=== PATIENT | female | born 1990 | race Caucasian/White ===

== ENCOUNTER 2024-03-15 12:43 | Inpatient (IN) | payer MEDICAID, SELFPAY ==
--- NOTE | ~2024-03-15 | CT_ITS ---
EXAMINATION: CT FACIAL BONES WITHOUT CONTRAST CLINICAL INFORMATION: Left upper facial pain post extraction #16 COMPARISON: None available. TECHNIQUE: Axial images through the facial bones without IV contrast. Sagittal and coronal reconstructions. This CT examination was performed using dose optimization techniques as appropriate, variously including the following: *Automated exposure control *Adjustment of mA and/or kV according to patient size (this includes techniques or standardized protocols for targeted exams where dose is matched to indication/reason for exam; i.e. extremities or head) *Use of iterative reconstruction technique DLP: 396 mGy-cm FINDINGS: There are remaining apical roots of the most posterior left maxillary molar. The remainder of the tooth is not seen and has presumably been extracted. There is adjacent soft tissue thickening of the lateral to the maxilla measuring 1.5 x 3 cm in dimension. This is low-attenuation and there is some stranding of the surrounding fat. Appearance is suggestive of phlegmon or small developing abscess, difficult to differentiate without IV contrast. There is a periapical cyst of the more anterior left maxillary molar. Multiple left and right mandibular molars are missing and may have been extracted. There is membranous soft tissue thickening in the floor of the left maxillary sinus, likely odontogenic in origin. The remainder of the paranasal sinuses are clear. Mastoid air cells and middle ears are clear. The orbits are normal. Visualized intracranial structures are normal. Visualized salivary glands are normal. There is shotty cervical lymphadenopathy. Prominent soft tissue in the oropharynx/pontine tonsils. Visualized cervical spine unremarkable. CT/CT facial bones wo IV con IMPRESSION: Roots of the extracted tooth remain. 1.5 x 3 cm size low-attenuation soft tissue adjacent to the left posterior lateral maxilla and extracted tooth questionable for phlegmon or developing abscess. Membranous soft tissue thickening of the floor of the left maxillary sinus likely odontogenic in origin.
[2024-03-15 12:48] VITALS: BP 144/65; PULSE 89; RESP 18; TEMP 36.6; O2SAT 98; BMI 38.1
--- NOTE | 2024-03-15 12:48 | ED_ITS ---
HPI - Dental/Oral General Chief complaint: Dental/Oral Stated complaint: Teeth pulled-in pain Time Seen by Provider: 03/15/24 12:58 Source: patient Mode of arrival: ambulatory Limitations: no limitations History of Present Illness HPI Narrative: 34-year-old female presents to the ER for left upper dental pain associated with facial swelling and inability to open her mouth since she had tooth 16 extracted by [facility] dental 7 days ago. She states she had her top 2 molars on the left side extracted last Sunday. She reports that a piece of tooth 16. Broke off and they were unable to get it out. She was initially discharged with no pain medications or antibiotics. She went back to them 2 days after the procedure with severe pain in the left upper face and jaw, swelling and inability to open her mouth. She was prescribed Motrin, Tylenol and amoxicillin. She went back again 3 days later with persistent and ongoing symptoms. Her amoxicillin was changed to clindamycin. She states she has had no improvement in her pain or swelling. She called the office today and they told her they would be able to do much else for her, they provided her a referral to an oral surgeon. Patient has been taking Motrin with brief and minor relief in her pain. She is unable to eat and drink due to pain and swelling. MD Complaint: tooth pain Location: Tooth # (15 and 16) Onset (ago): week(s) (1) Duration: worsening Severity: severe Severity scale (1-10): 10 Relieving factors: NSAIDs Exacerbating factors: chewing Context: other ( Recent extraction) Associated symptoms: ear pain Treatment prior to arrival: oral analgesic Related Data Allergies Allergy/AdvReac Type Severity Reaction Status Date / Time No Known Allergies [NKA] Allergy Mild NOT Verified 03/15/24 12:49 APPLICABLE Review of Systems 2 Review of Systems: Yes all other systems are reviewed and are negative PMFSH Social History Social History Advance Directives: No Advance Directives Information Provided: Yes Physical Exam 2 Vital Signs: Vital Signs: Last Vital Signs Temp 98 F 03/15/24 12:48 Pulse 89 03/15/24 12:48 Resp 18 03/15/24 12:48 BP 144/65 H 03/15/24 12:48 Pulse Ox 98 03/15/24 12:48 O2 Del Method Room Air 03/15/24 12:48 BMI result Body Mass Index 38.1 Appearance: Alert. Oriented X3. No acute distress. Head/face: normocephalic, atraumatic. moderate left-sided facial swelling Eyes: Pupils equal, round and reactive to light. ENT: Pharynx with moist mucous membranes. unable to open the jaw for full dental examination, left upper jaw with significant tenderness and gingival edema in the area of the 2nd and 3rd molars. Neck: Normal inspection. Neck supple. no anterior neck swelling CVS: Normal heart rate and rhythm. Pulses normal. Respiratory: No respiratory distress. Breath sounds normal. Skin: Skin warm and dry. Normal skin color. Normal skin turgor. No rashes. Extremities: No lower extremity edema. No joint swelling. Neuro/psych: Oriented X 3. No motor deficit. No sensory deficit. CN II-XII intact. Normal speech and cognition. Course Course Course Narrative: This is an RME performed by Maribell Malone, [employer]CH[employer]ICIAN: Additional HPI, ROS, PE not included below will be deferred to primary provider. Patient is a 34-year-old female who presents emergency department for evaluation of dental pain. She had wisdom teeth extracted; upper left and right he has been experiencing pain side despite the use of acetaminophen and ibuprofen as instructed. She has been to her dentist twice over the past week in regards to her pain, and she reports that her antibiotics were switched.. She feels as though she is unable to open her jaw at all due to the amount of pain and swelling. Physical exam: Notable swelling to the left cheek, difficulty visualizing the extracted socket while in triage due to limited opening of the jaw, do not see active purulent drainage or notable erythema to the gingiva Reevaluation(s) Reevaluation #1: Patient is still in severe pain. Still unable to open her mouth well. CT scan showing possible phlegmon versus developing abscess. Will plan to admit the patient for IV antibiotics, pain control. Time: 15:22 Medications Administered Discontinued Medications Generic Name Dose Route Start Last Admin Trade Name Freq PRN Reason Stop Dose Admin Sodium Chloride 1,000 mls @ 999 mls/hr 03/15/24 13:30 03/15/24 13:45 Ns IVCONT 03/15/24 14:30 999 mls/hr .Q1H1M INDIRA Administration Ampicillin Sodium/Sulbactam 100 mls @ 200 mls/hr 03/15/24 15:17 03/15/24 15:34 Sodium 3 gm/ Sodium Chloride IV 03/15/24 15:46 200 mls/hr ONCE ONE Administration Ketorolac Tromethamine 15 mg 03/15/24 13:18 03/15/24 13:44 Ketorolac Tromethamine 15 Mg/Ml Vial IVPUSH 03/15/24 13:19 15 mg ONCE ONE Administration Morphine Sulfate 4 mg 03/15/24 13:18 03/15/24 13:44 Morphine Sulfate 4 Mg/Ml Cartridge IVPUSH 03/15/24 13:19 4 mg ONCE ONE Administration Protocol Morphine Sulfate 4 mg 03/15/24 15:21 03/15/24 15:36 Morphine Sulfate 4 Mg/Ml Cartridge IVPUSH 03/15/24 15:22 4 mg ONCE ONE Administration Protocol Ondansetron HCl 4 mg 03/15/24 13:18 03/15/24 13:44 Ondansetron Hcl 4 Mg/2 Ml Vial IVPUSH 03/15/24 13:19 4 mg ONCE ONE Administration Medical Decision Making Medical Decision Making [facility] Narrative: 34-year-old female presents to the ER for evaluation of worsening left-sided facial pain and swelling after she had teeth 15 and 16 extracted 1 week ago by [facility] dentist. Symptoms are getting worse despite amoxicillin and clindamycin. Concerned she will require IV antibiotics and pain control. CT scan has been ordered along with lab workup. CT scan showing a early abscess versus phlegmon with 1.5 x 3 cm area near the extracted tooth, roots remain patient was given IV morphine and Toradol with ongoing pain. BP remained stable. Additional IV morphine has been ordered along with IV Unasyn. Will plan for admission to the hospital for further management. Differential Diagnosis Differential Diagnoses: The differential diagnosis associated with the presentation includes Dental abscess, phlegmon, local inflammatory reaction, sinus infection Admission/Observation Consideration of admission/observation: Escalation of care including admission/observation considered Consult Healthcare Provider Management of the patient was discussed with: Hospitalist Lab Data [facility] Lab Attestation statement: I reviewed the patient's lab results. 03/15/24 13:46 03/15/24 13:46 Labs: Lab Results 03/15/24 Range/Units 13:46 WBC 11.0 H (4.8-10.8) X10*3/uL RBC 3.95 L (4.20-5.50) X10*6/uL Hgb 10.1 L (12.0-16.0) g/dl Hct 30.7 L (37.0-47.0) % MCV 77.7 L (80.0-98.0) fL MCH 25.6 L (27.0-33.0) pg MCHC 32.9 (31.0-35.0) g/dl RDW 14.5 (11.0-16.0) % Plt Count 350 (160-400) X10*3/uL MPV 8.9 L (9.4-12.3) fL Immature Gran % (Auto) 0.5 H (0.0-0.4) % Neut % (Auto) 77.7 H (45-73) % Lymph % (Auto) 11.9 L (20-40) % [place] % (Auto) 7.6 (2-11) % Eos % (Auto) 1.9 (0-4) % Baso % (Auto) 0.4 (0-2) % Lymph # (Auto) 1.3 (1.2-4.9) X10*3/uL [place] # (Auto) 0.8 (0.1-1.2) X10*3/uL Eos # (Auto) 0.2 (0.0-0.4) X10*3/uL Baso # (Auto) 0.0 (0.0-0.2) X10*3/uL Abs Immat Gran (auto) 0.06 H (0.00-0.03) X10*3/uL Absolute Neuts (auto) 8.5 H (2.0-8.3) x10*3/uL Absolute Nucleated RBC 0.000 (0.0-0.012) X10*3/uL Nucleated RBC % (auto) 0.0 (0.0-0.2) /100WBC Sodium 139 (135-145) mmol/L Potassium 3.5 (3.3-5.1) mmol/L Chloride 106 (96-108) mmol/L Carbon Dioxide 20 L (22-29) mmol/L Anion Gap 17 (12-20) BUN 8 L (9-16) mg/dL Creatinine 0.89 (0.5-1.4) mg/dL Estim Creat Clear Calc 98.1 Estimated GFR > 60 Random Glucose 141 H (60-115) mg/dL Calcium 9.4 (8.4-10.2) mg/dL Independent Interpretation I performed an independent interpretation of an: CT Scan Interpretation: abnormality in the upper left molar area, agree w/ radiology read Radiology Impression Discussion of test interpretation with radiology: I have reviewed the radiologist's reading. Radiologist Impression: EXAMINATION: CT FACIAL BONES WITHOUT CONTRAST CLINICAL INFORMATION: Left upper facial pain post extraction #16 COMPARISON: None available. TECHNIQUE: Axial images through the facial bones without IV contrast. Sagittal and coronal reconstructions. This CT examination was performed using dose optimization techniques as appropriate, variously including the following: *Automated exposure control *Adjustment of mA and/or kV according to patient size (this includes techniques or standardized protocols for targeted exams where dose is matched to indication/reason for exam; i.e. extremities or head) *Use of iterative reconstruction technique DLP: 396 mGy-cm FINDINGS: There are remaining apical roots of the most posterior left maxillary molar. The remainder of the tooth is not seen and has presumably been extracted. There is adjacent soft tissue thickening of the lateral to the maxilla measuring 1.5 x 3 cm in dimension. This is low-attenuation and there is some stranding of the surrounding fat. Appearance is suggestive of phlegmon or small developing abscess, difficult to differentiate without IV contrast. There is a periapical cyst of the more anterior left maxillary molar. Multiple left and right mandibular molars are missing and may have been extracted. There is membranous soft tissue thickening in the floor of the left maxillary sinus, likely odontogenic in origin. The remainder of the paranasal sinuses are clear. Mastoid air cells and middle ears are clear. The orbits are normal. Visualized intracranial structures are normal. Visualized salivary glands are normal. There is shotty cervical lymphadenopathy. Prominent soft tissue in the oropharynx/pontine tonsils. Visualized cervical spine unremarkable. CT/CT facial bones wo IV con IMPRESSION: Roots of the extracted tooth remain. 1.5 x 3 cm size low-attenuation soft tissue adjacent to the left posterior lateral maxilla and extracted tooth questionable for phlegmon or developing abscess. Membranous soft tissue thickening of the floor of the left maxillary sinus likely odontogenic in origin. External Record Review External record reviewed: Office record, Outpatient record, Prior outpatient labs and Prior outpatient radiology Prescription Management I considered prescription management with: Pain Medication and Antibiotic Critical Care Time Critical Care Time Critical Care Time: Yes Total Critical Care Time: 44 Attestation: I have personally provided critical care time exclusive of time spent on separately billable procedures. Time includes review of lab data, radiology results, discussion with consultants, and monitoring for potential decompensation. Intervention performed as documented. Discharge Plan Discharge Clinical Impression: Dental abscess Patient Disposition: Admitted As Inpatient
--- NOTE | 2024-03-15 13:19 | PC.NURSE ---
PT REPORTS THAT SHE HAD HER L UPPER WISDOM TOOTH PULLED LAST SUNDAY AND WAS SENT HOME ON ABX. SHE COMES IN TODAY WITH R JAW SWELLING AND 10/21 TOOTHACHE. PT SAID SHE TOOK TYLENOL AND IBUPROFEN BUT NO RELIEF.
[2024-03-15] MEDS: Morphine Sulfate 4 MG/ML CARTRIDGE IVPUSH ×2 (13:44→15:36)
[2024-03-15] MEDS: Ketorolac Tromethamine 15 MG/ML VIAL IVPUSH (13:44)
[2024-03-15] MEDS: ondansetron HCL 4 MG/2 ML VIAL IVPUSH (13:44)
[2024-03-15] MEDS: 0.9 % Sodium Chloride 1,000 ML 999 ML IVCONT (13:45)
--- NOTE | 2024-03-15 13:50 | PC.NURSE ---
20G IV INSERTED LAC, TOLERATED WELL.
[2024-03-15 13:52] LABS: Basophils Percent Auto 0.4 % (0-2); Eosinophils Absolute Auto 0.2 X10*3/uL (0.0-0.4); Eosinophils Percent Auto 1.9 % (0-4); Hematocrit 30.7 % (37.0-47.0); Hemoglobin 10.1 g/dl (12.0-16.0); Imm Gran Abs Auto 0.06 X10*3/uL (0.00-0.03); Imm Gran Pct Auto 0.5 % (0.0-0.4); Lymphocytes Absolute Auto 1.3 X10*3/uL (1.2-4.9); Lymphocytes Percent Auto 11.9 % (20-40); Mean Corpuscular HGB Conc 32.9 g/dl (31.0-35.0); Mean Corpuscular Hemoglobin 25.6 pg (27.0-33.0); Mean Corpuscular Volume 77.7 fL (80.0-98.0); Mean Platelet Volume 8.9 fL (9.4-12.3); Monocytes Absolute Auto 0.8 X10*3/uL (0.1-1.2); Monocytes Percent Auto 7.6 % (2-11); Neutrophils Absolute Auto 8.5 x10*3/uL (2.0-8.3); Neutrophils Percent Auto 77.7 % (45-73); Platelet Count 350 X10*3/uL (160-400); Red Blood Count 3.95 X10*6/uL (4.20-5.50); Red Cell Distribution Width 14.5 % (11.0-16.0)
--- NOTE | 2024-03-15 13:59 | PC.NURSE ---
PT TAKEN TO CT AT THIS TIME.
[2024-03-15 14:14] LABS: Anion Gap 17 (12-20); Blood Urea Nitrogen 8 mg/dL (9-16); Calcium 9.4 mg/dL (8.4-10.2); Carbon Dioxide 20 mmol/L (22-29); Chloride 106 mmol/L (96-108); Creatinine Clr Calc Pharmacy 98.1; Estimated Glomerular Filt Rate > 60; Glucose Random 141 mg/dL (60-115); Potassium 3.5 mmol/L (3.3-5.1); Sodium 139 mmol/L (135-145)
[2024-03-15] MEDS: Ampicillin Sodium/Sulbactam Na 3 GM in 0.9 % Sodium Chloride 100 ML IV (15:34)
--- NOTE | 2024-03-15 16:15 | PM.IMHP ---
History of Present Illness Date of Service: 03/15/24 Chief Complaint: Dental pain 34-year-old female presents to the ER for left upper dental pain associated with facial swelling and inability to open her mouth since she had tooth 16 extracted by [facility] 7 days ago. She states she had her top 2 molars on the left side extracted last Sunday. She reports that a piece of tooth 16. Broke off and they were unable to get it out. She was initially discharged with no pain medications or antibiotics. She went back to them 2 days after the procedure with severe pain in the left upper face and jaw, swelling and inability to open her mouth. She was prescribed Motrin, Tylenol and amoxicillin. She went back again 3 days later with persistent and ongoing symptoms. Her amoxicillin was changed to clindamycin. She states she has had no improvement in her pain or swelling. She called the office today and they told her they would be able to do much else for her, they provided her a referral to an oral surgeon. Patient has been taking Motrin with brief and minor relief in her pain. She is unable to eat and drink due to pain and swelling. In the emergency room, CT scan demonstrated roots of extracted tooth remain 1.5 x 3 cm low attenuation soft tissue adjacent to the left posterior lateral maxilla and extracted tooth questionable developing abscess; given multiple doses of morphine along with Toradol with minimal improvement. At this point in time she will be admitted for IV antibiotics and pain control Review of Systems Review of Systems: Denies chest pain Denies shortness of breath Denies nausea vomiting diarrhea Denies fever chills Denies shortness of breath PMFSH Social History Advance Directives: No Advance Directives Information Provided: Yes Meds Allergies Allergy/AdvReac Type Severity Reaction Status Date / Time No Known Allergies [NKA] Allergy Mild NOT Verified 03/15/24 12:49 APPLICABLE Active Medications: Current Medications Acetaminophen (Acetaminophen 325 Mg Tablet) 650 mg PO Q6H PRN PRN Reason: Pain, Mild (Pain Scale 1-3) Enoxaparin Sodium (Enoxaparin Sodium 40 Mg/0.4 Ml Syringe) 40 mg SUBCUT Q24H INDIRA Clindamycin Phosphate (Cleocin) 600 mg in 50 mls @ 100 mls/hr IV Q6H INDIRA Morphine Sulfate (Morphine Sulfate 4 Mg/Ml Cartridge) 4 mg IVPUSH Q4H PRN; Protocol PRN Reason: Pain, Severe (Pain Scale 7-10) Ondansetron HCl (Ondansetron Hcl 4 Mg/2 Ml Vial) 4 mg IVPUSH Q8H PRN PRN Reason: Nausea and Vomiting Oxycodone HCl (Oxycodone Hcl Immed Release 5 Mg Tablet) 10 mg PO Q4H PRN PRN Reason: Pain, Moderate(Pain Scale 4-6) Sodium Chloride (0.9 % Sodium Chloride Flush 3 Ml Syringe) 3 ml IVFLUSH QSHIFT [facility] Physical Exam Vital Signs and Narrative: Vital Signs: Last Vital Signs Temp 98 F 03/15/24 12:48 Pulse 89 03/15/24 12:48 Resp 18 03/15/24 12:48 BP 144/65 H 03/15/24 12:48 Pulse Ox 98 03/15/24 12:48 O2 Del Method Room Air 03/15/24 12:48 BMI result Body Mass Index 38.1 Const: Other: Awake alert uncomfortable appearing lying on stretcher HEENT: Other: Left facial edema; erythematous gum adjacent to extraction site without visible drainage. Resp: Other: Clear to auscultation bilaterally no rales rhonchi or wheezes Cardio: Other: No S4; positive S1-S2; no S3 murmurs rubs or gallops GI: Other: Soft nontender nondistended normoactive bowel sounds Extrem: Other: No edema bilaterally Results Labs 03/15/24 13:46 03/15/24 13:46 Labs: Laboratory Results - last 24 hr 03/15/24 13:46 MCV 77.7 L MCH 25.6 L MCHC 32.9 RDW 14.5 Plt Count 350 MPV 8.9 L Immature Gran % (Auto) 0.5 H Neut % (Auto) 77.7 H Lymph % (Auto) 11.9 L [place] % (Auto) 7.6 Eos % (Auto) 1.9 Baso % (Auto) 0.4 Lymph # (Auto) 1.3 [place] # (Auto) 0.8 Eos # (Auto) 0.2 Baso # (Auto) 0.0 Abs Immat Gran (auto) 0.06 H Absolute Neuts (auto) 8.5 H Absolute Nucleated RBC 0.000 Nucleated RBC % (auto) 0.0 Anion Gap 17 Estim Creat Clear Calc 98.1 Estimated GFR > 60 Random Glucose 141 H Calcium 9.4 Imaging Radiologist's Impressions: Impressions Face CT 03/15/24 14:10 IMPRESSION: Roots of the extracted tooth remain. 1.5 x 3 cm size low-attenuation soft tissue adjacent to the left posterior lateral maxilla and extracted tooth questionable for phlegmon or developing abscess. Membranous soft tissue thickening of the floor of the left maxillary sinus likely odontogenic in origin. Assessment and Plan (1) Dental abscess: Status: Acute Plan 34-year-old female with essentially no past medical history admitted with facial swelling pain and inability open mouth status post tooth extraction 1 week ago. Tooth 16. Extracted however dentist told her piece of the tooth/root remained. CT scan confirms route versus early abscess. Was on amoxicillin with no improvement 1. Dental abscess (verified by CT face) -clindamycin 600 mg IV q.6 hours -Zofran IV for nausea -morphine/oxycodone for pain -full liquid diet Full code Lovenox Patient requires at least 2 midnights of inpatient stay going forward to treat dental abscess with IV antibiotics at as failed outpatient therapies. This can not be achieved a lesser acute setting Quality Stroke Does the patient have a stroke diagnosis?: No VTE Prior VTE?: No VTE Risk Level:: Medical - moderate - high VTE Device Contraindication: Treatment Not Indicated VTE Drug Contraindication: N/A - Med Ordered
[2024-03-15] MEDS: Enoxaparin Sodium 40 MG/0.4 ML SYRINGE SUBCUT (16:50)
[2024-03-15] MEDS: Clindamycin Phosphate/D5W 600 MG/50 ML PIGGYBACK 100 MG IV ×2 (16:50→23:00)
--- NOTE | 2024-03-15 18:13 | PHA.MEDREC ---
Pharmacy Consult ? Medication Reconciliation Pharmacy has completed the medication reconciliation. Spoke to pt to confirm meds.
[2024-03-15 18:35] VITALS: BP 138/69; PULSE 75; RESP 18; TEMP 36.1; O2SAT 99
[2024-03-15 19:31] VITALS: BP 135/61; PULSE 69; RESP 18; TEMP 36.3; O2SAT 100
[2024-03-15] MEDS: oxyCODONE HCl Immed Release 5 MG TABLET 10 MG PO (19:56)
[2024-03-15] MEDS: 0.9 % Sodium Chloride Flush 3 ML SYRINGE IVFLUSH (23:49)
[2024-03-16] VITALS: BP 102/53; PULSE 73; RESP 16; TEMP 36.8; O2SAT 97
[2024-03-16] MEDS: Clindamycin Phosphate/D5W 600 MG/50 ML PIGGYBACK 100 MG IV ×4 (05:22→22:39)
[2024-03-16] MEDS: oxyCODONE HCl Immed Release 5 MG TABLET 10 MG PO ×2 (05:28→11:20)
[2024-03-16 06:39] LABS: MANUAL DIFF FLAG NO
[2024-03-16 06:41] LABS: Basophils Percent Auto 0.5 % (0-2); Eosinophils Absolute Auto 0.2 X10*3/uL (0.0-0.4); Eosinophils Percent Auto 3.7 % (0-4); Hematocrit 29.3 % (37.0-47.0); Hemoglobin 9.4 g/dl (12.0-16.0); Imm Gran Abs Auto 0.04 X10*3/uL (0.00-0.03); Imm Gran Pct Auto 0.6 % (0.0-0.4); Lymphocytes Percent Auto 29.9 % (20-40); Mean Corpuscular HGB Conc 32.1 g/dl (31.0-35.0); Mean Corpuscular Hemoglobin 25.7 pg (27.0-33.0); Mean Corpuscular Volume 80.1 fL (80.0-98.0); Mean Platelet Volume 9.6 fL (9.4-12.3); Monocytes Absolute Auto 0.6 X10*3/uL (0.1-1.2); Monocytes Percent Auto 8.9 % (2-11); Neutrophils Absolute Auto 3.7 x10*3/uL (2.0-8.3); Neutrophils Percent Auto 56.4 % (45-73); Platelet Count 304 X10*3/uL (160-400); Red Blood Count 3.66 X10*6/uL (4.20-5.50); Red Cell Distribution Width 14.6 % (11.0-16.0); White Blood Count 6.5 X10*3/uL (4.8-10.8)
[2024-03-16 06:59] LABS: Alanine Aminotransferase 18 U/L (0-31); Albumin Level 3.4 g/dL (3.5-5.0); Alkaline Phosphatase 78 U/L (39-117); Anion Gap 14 (12-20); Aspartate Amino Transferase 16 U/L (5-31); Bilirubin Total 0.2 mg/dL (0.0-1.0); Blood Urea Nitrogen 8 mg/dL (9-16); Carbon Dioxide 22 mmol/L (22-29); Chloride 107 mmol/L (96-108); Creatinine Clr Calc Pharmacy 124.7; Estimated Glomerular Filt Rate > 60; Glucose Fasting 99 mg/dL (60-99); Potassium 3.6 mmol/L (3.3-5.1); Sodium 139 mmol/L (135-145); Total Protein 6.9 g/dL (6.5-8.0)
[2024-03-16 07:35] VITALS: BP 111/63; PULSE 61; RESP 16; TEMP 36.6; O2SAT 96
--- NOTE | 2024-03-16 09:44 | MHC.CM.PN ---
Patient lives at home w/ teenage children. Functionally independent. Denies use of DME or services. PCP Dori PRITCHARD at [facility] No HCP. CM provided education and offered assistance. Patient declined. DP: Goal is home self care. Family to transport. CM will continue to follow for dc needs.
[2024-03-16] MEDS: Acetaminophen 325 MG TABLET 650 MG PO ×2 (09:58→16:30)
[2024-03-16] MEDS: 0.9 % Sodium Chloride Flush 3 ML SYRINGE IVFLUSH ×3 (11:20→23:26)
--- NOTE | 2024-03-16 12:07 | P.PNIM_ITS ---
Subjective Subjective Date of Service: 03/16/24 Interval History: Notes some improvement overnight but still uncomfortable Review of Systems Denies chest pain Denies shortness of breath Denies nausea vomiting diarrhea Denies fever chills Denies shortness of breath Physical Exam 2 Vital Signs: Vital Signs: Last Vital Signs Temp 97.8 F 03/16/24 07:35 Pulse 61 03/16/24 07:35 Resp 16 03/16/24 07:35 BP 111/63 03/16/24 07:35 Pulse Ox 96 03/16/24 07:35 O2 Del Method Room Air 03/16/24 07:35 BMI result Body Mass Index 38.1 Const: Other: Awake alert uncomfortable appearing lying on stretcher HEENT: Other: Left facial edema improved; erythematous gum adjacent to extraction site without visible drainage. Resp: Other: Clear to auscultation bilaterally no rales rhonchi or wheezes Cardio: Other: No S4; positive S1-S2; no S3 murmurs rubs or gallops GI: Other: Soft nontender nondistended normoactive bowel sounds Extrem: Other: No edema bilaterally Objective Data Active Medications Acetaminophen (Acetaminophen 325 Mg Tablet) 650 mg PO Q6H PRN PRN Reason: Pain, Mild (Pain Scale 1-3) Last Admin: 03/16/24 09:58 Dose: 650 mg Documented By: MICHAEL Enoxaparin Sodium (Enoxaparin Sodium 40 Mg/0.4 Ml Syringe) 40 mg SUBCUT Q24H [facility] Last Admin: 03/15/24 16:50 Dose: 40 mg Documented By: REBECCA Clindamycin Phosphate (Cleocin) 600 mg in 50 mls @ 100 mls/hr IV Q6H [facility] Last Infusion: 03/16/24 11:56 Dose: Infused Documented By: MICHAEL Morphine Sulfate (Morphine Sulfate 4 Mg/Ml Cartridge) 4 mg IVPUSH Q4H PRN; Protocol PRN Reason: Pain, Severe (Pain Scale 7-10) Ondansetron HCl (Ondansetron Hcl 4 Mg/2 Ml Vial) 4 mg IVPUSH Q8H PRN PRN Reason: Nausea and Vomiting Oxycodone HCl (Oxycodone Hcl Immed Release 5 Mg Tablet) 10 mg PO Q4H PRN PRN Reason: Pain, Moderate(Pain Scale 4-6) Last Admin: 03/16/24 11:20 Dose: 10 mg Documented By: MICHAEL Sodium Chloride (0.9 % Sodium Chloride Flush 3 Ml Syringe) [facility] Last Admin: 03/16/24 11:20 Dose: 3 ml Documented By: MICHAEL Labs 03/16/24 06:16 03/16/24 06:16 Labs: Laboratory Results - last 24 hr 03/15/24 03/16/24 13:46 06:16 MCV 77.7 L 80.1 MCH 25.6 L 25.7 L MCHC 32.9 32.1 RDW 14.5 14.6 Plt Count 350 304 MPV 8.9 L 9.6 Immature Gran % (Auto) 0.5 H 0.6 H Neut % (Auto) 77.7 H 56.4 Lymph % (Auto) 11.9 L 29.9 [place] % (Auto) 7.6 8.9 Eos % (Auto) 1.9 3.7 Baso % (Auto) 0.4 0.5 Lymph # (Auto) 1.3 2.0 [place] # (Auto) 0.8 0.6 Eos # (Auto) 0.2 0.2 Baso # (Auto) 0.0 0.0 Abs Immat Gran (auto) 0.06 H 0.04 H Absolute Neuts (auto) 8.5 H 3.7 Absolute Nucleated RBC 0.000 0.000 Nucleated RBC % (auto) 0.0 0.0 Anion Gap 17 14 Estim Creat Clear Calc 98.1 124.7 Estimated GFR > 60 > 60 Random Glucose 141 H Fasting Glucose 99 Calcium 9.4 9.0 Total Bilirubin 0.2 AST 16 ALT 18 Alkaline Phosphatase 78 Total Protein 6.9 Albumin 3.4 L Assessment and Plan (1) Dental abscess: Status: Acute Plan 34-year-old female with essentially no past medical history admitted with facial swelling pain and inability open mouth status post tooth extraction 1 week ago. Tooth 16. Extracted however dentist told her piece of the tooth/root remained. CT scan confirms route versus early abscess. Was on amoxicillin with no improvement 1. Dental abscess (verified by CT face) -clindamycin 600 mg IV q.6 hours(2) -Zofran IV for nausea -morphine/oxycodone for pain -advance diet to regular Full code Lovenox Patient requires ongoing hospitalization for IV antibiotics to treat dental abscess that has failed outpatient therapies Quality Stroke Does the patient have a stroke diagnosis?: No VTE Prior VTE?: No VTE Risk Level:: Medical - moderate - high VTE Device Contraindication: Treatment Not Indicated VTE Drug Contraindication: N/A - Med Ordered
[2024-03-16 15:24] VITALS: BP 103/66; PULSE 70; RESP 16; TEMP 36.5; O2SAT 99
[2024-03-16] MEDS: Enoxaparin Sodium 40 MG/0.4 ML SYRINGE SUBCUT (16:21)
[2024-03-16 23:27] VITALS: BP 108/56; PULSE 64; RESP 16; TEMP 36.1; O2SAT 97
[2024-03-17] MEDS: Clindamycin Phosphate/D5W 600 MG/50 ML PIGGYBACK 100 MG IV ×2 (05:18→10:12)
[2024-03-17] MEDS: Calcium Carbonate 750 MG TAB.CHEW PO (05:33)
[2024-03-17 07:36] VITALS: BP 114/57; PULSE 59; RESP 18; TEMP 36.1; O2SAT 98
[2024-03-17] MEDS: 0.9 % Sodium Chloride Flush 3 ML SYRINGE IVFLUSH (10:12)
[2024-03-17] MEDS: Magnesium Hydrox/Alum Hydrox 30 ML ORAL.SUSP PO (10:12)
--- NOTE | 2024-03-17 10:29 | MHC.CM.PN ---
pt dcd home self care
--- NOTE | 2024-03-17 11:38 | P.DS_ITS ---
DS: Providers Provider Date of Service: 03/17/24 Date of admission: 03/15/24 16:00 Date of discharge: 03/17/24 Primary care physician: Unknown Physician DS: Diagnosis Discharge Diagnosis (1) Dental abscess: Status: Acute DS: Summary Hospital Course Hospital Course: 34-year-old female presents to the ER for left upper dental pain associated with facial swelling and inability to open her mouth since she had tooth 16 extracted by [facility] 7 days ago. She states she had her top 2 molars on the left side extracted last Sunday. She reports that a piece of tooth 16. Broke off and they were unable to get it out. She was initially discharged with no pain medications or antibiotics. She went back to them 2 days after the procedure with severe pain in the left upper face and jaw, swelling and inability to open her mouth. She was prescribed Motrin, Tylenol and amoxicillin. She went back again 3 days later with persistent and ongoing symptoms. Her amoxicillin was changed to clindamycin. She states she has had no improvement in her pain or swelling. She called the office today and they told her they would be able to do much else for her, they provided her a referral to an oral surgeon. Patient has been taking Motrin with brief and minor relief in her pain. She is unable to eat and drink due to pain and swelling. In the emergency room, CT scan demonstrated roots of extracted tooth remain 1.5 x 3 cm low attenuation soft tissue adjacent to the left posterior lateral maxilla and extracted tooth questionable developing abscess; given multiple doses of morphine along with Toradol with minimal improvement. At this point in time she will be admitted for IV antibiotics and pain control [facility] Admitted to general medical floor and started on IV clindamycin; over the next 48 hours she improved dramatically with limited pain and decreased facial swelling. At this point in time she is medically acceptable for discharge Time Attestation Discharge Coordination Time (in mins): 35 Quality: Safe Use of Opioids Does Pt have an Active Cancer Diagnosis on the Problem List?: No Quality: Stroke Does the patient have a stroke diagnosis?: No Physical Exam Vital Signs: Vital Signs: Last Vital Signs Temp 96.9 F 03/17/24 07:36 Pulse 59 03/17/24 07:36 Resp 18 03/17/24 07:36 BP 114/57 L 03/17/24 07:36 Pulse Ox 98 03/17/24 07:36 O2 Del Method Room Air 03/17/24 07:36 BMI result Body Mass Index 38.1 Const: Other: Awake alert uncomfortable appearing lying on stretcher HEENT: Other: Left facial edema improved; erythematous gum adjacent to extraction site without visible drainage. Resp: Other: Clear to auscultation bilaterally no rales rhonchi or wheezes Cardio: Other: No S4; positive S1-S2; no S3 murmurs rubs or gallops GI: Other: Soft nontender nondistended normoactive bowel sounds Extrem: Other: No edema bilaterally Discharge Plan Discharge Anticipated Discharge Date/Time: 03/17/24 11:33 Patient Disposition: Home, Self-Care Discharge Diagnosis: Dental abscess Referrals: Physician,Unknown J [Primary Care Provider] - 1 Week Discharge Medications: New oxycodone 5 mg Tablet 10 mg PO Q4H PRN (Reason: Pain, Moderate(Pain Scale 4-6)) Qty: 20 0RF Rx Instructions: Partial Fill upon patient request. clindamycin HCl 300 mg capsule 300 mg PO Q6H 7 Days Qty: 28 0RF Continued norethindrone-e.estradiol-iron [12/01 (28)] 1 mg-20 mcg (21)/75 mg (7) tablet 1 tab PO DAILY fluoxetine 10 mg capsule 10 mg PO DAILY Rx Instructions: with 20 mg ibuprofen 600 mg tablet 600 mg PO Q6H PRN (Reason: Pain) fluoxetine 20 mg capsule 20 mg PO DAILY Rx Instructions: with 10 mg Discontinued clindamycin HCl 300 mg capsule 300 mg PO Q6H Rx Instructions: END DATE: 03/20/24 Discharge Orders: Discharge Order (Routine); Ordered 03/17/24 Ordered By: Bashir Mistry Diet: Advance to usual diet Activity on Discharge: As tolerated Stand Alone Forms: Patient Portal Discharge page Print Language: Romanian Care Plan Goals: Resume all meds as taken before hospitalization Health Concerns: Clindamycin 300 mg every 6 hours for 7 days Plan of Treatment: Follow-up with your dentist and PCP next available Assessment: See discharge summary
== END 2024-03-17 12:30 | disposition home or self-care (01) | DRG 114 ==
LOC: HO.ED 13:51 → HO.EDOVER 16:10 → HO.S3 18:58
PROVIDERS: Physician Assistant; Admitting Provider Hospitalist; Emergency Provider Emergency Medicine; PCP Physician Assistant; Visit Provider Hospitalist
DX: K04.7 Periapical abscess without sinus (principal); Z79.899 Other long term (current) drug therapy
CPT/HCPCS: 36415; 70486; 80048; 80053; 85025; 99285; J0295; J0736; J1650; J1885; J2270; J2405

== ENCOUNTER → 2024-03-15 16:00 | Outpatient (BNV) | payer MEDICAID, SELFPAY | PROVIDERS: Admitting Provider Hospitalist; Emergency Provider Emergency Medicine; Visit Provider Hospitalist | DX: K04.7 Periapical abscess without sinus (principal) | CPT/HCPCS: 99223; 99232; 99239 ==

== ENCOUNTER 2024-04-12 13:31 | Emergency (ER) | payer MEDICAID, SELFPAY ==
[2024-04-12 13:36] VITALS: BP 138/100; PULSE 86; RESP 18; TEMP 36.6; O2SAT 98; BMI 39.0
--- NOTE | 2024-04-12 13:40 | ED.GENADULT ---
HPI - General Adult General Chief complaint: General Medical Stated complaint: hook in RT hand Time Seen by Provider: 04/12/24 15:32 History of Present Illness HPI narrative: Patient complains of fish hook embedded in the right hand between the thumb and the index finger Denies any numbness weakness or tingling, no other injury Related Data Home Medications ?Medication ?Instructions ?Recorded ?Confirmed fluoxetine 10 mg capsule 10 mg PO DAILY 03/15/24 03/15/24 fluoxetine 20 mg capsule 20 mg PO DAILY 03/15/24 03/15/24 ibuprofen 600 mg tablet 600 mg PO Q6H PRN Pain 03/15/24 03/15/24 norethindrone 1 mg-ethinyl 1 tab PO DAILY 03/15/24 03/15/24 estradiol 20 mcg (21)-iron 75 mg (7) tablet (12/01 (28)) Previous Rx's ?Medication ?Instructions ?Recorded clindamycin HCl 300 mg capsule 300 mg PO Q6H 7 days #28 caps 03/17/24 oxycodone 5 mg tablet 10 mg (2 x 5 mg) PO Q4H PRN Pain, 03/17/24 Moderate(Pain Scale 4-6) #20 tabs cephalexin 500 mg tablet 500 mg PO TID 2 days #6 tabs 04/12/24 Allergies Allergy/AdvReac Type Severity Reaction Status Date / Time No Known Allergies [NKA] Allergy Mild NOT Verified 04/12/24 13:37 APPLICABLE [facility] Past Medical History Source: nursing notes reviewed Social History Social History Household Members: Children Housing: Apartment Do you presently have visiting nurse or other home services: No Patient Tobacco Use Status: Never used Tobacco Substance Use Type: Marijuana Advance Directives: No Advance Directives Information Provided: No service: No Physical Exam ED Vital Signs: Vital Signs - 24 hr 04/12/24 13:36 Temperature 98 F Pulse Rate 86 Respiratory Rate 18 Blood Pressure 138/100 H Pulse Oximetry 98 Oxygen Delivery Method Room Air BMI result Body Mass Index 39.0 General appearance no acute distress Head is normocephalic neck is supple no respiratory no distress extremities the right hand has a fishhook embedded in the space webspace between the thumb and index finger neurologically intact distal with good sensation and normal movement, no tendon deficits Course Course Course Narrative: This is an RME: Additional HPI, ROS, PE not included below will be deferred to primary provider. RME assessment and note performed by: Anna Adame PA-C This is a 11-iv[age]-female who presents to the ER with complaints of fish hook in right hand since today. Plan: fish hook removal The area was cleansed with Betadine, anesthesia 6 cc of 1% lidocaine Small incision was made to remove embedded hook Hook was then easily removed with forceps and the wound was irrigated It did not need suturing and was left as is and a dressing was applied Patient was given prophylactic antibiotic and a tetanus shot Medications Administered Discontinued Medications Generic Name Dose Route Start Last Admin Trade Name Freq PRN Reason Stop Dose Admin Diphtheria/Tetanus/Acell Pertussis 0.5 ml 04/12/24 16:09 04/12/24 16:26 Diphth,Pertus(Acell),Tet Adult 0.5 Ml Syringe IM 04/12/24 16:10 0.5 ml .ONCE ONE Administration Lidocaine HCl 5 ml 04/12/24 16:09 04/12/24 16:26 Lidocaine Hcl 1 % Mpf 5 Ml Vial SUBCUT 04/12/24 16:10 5 ml ONCE ONE Administration Discharge Plan Discharge Clinical Impression: Foreign body (FB) in soft tissue Patient Disposition: Home, Self-Care Additional Instructions: [place] was removed, I made a very small widening of the opening to get it out but this did not need stitches You got a tetanus shot today We are doing 2 days of preventative antibiotic Return any time for redness swelling pain discharge from wound red stripe up arm any sign of infection any worse condition or any concerns Prescriptions: New cephalexin 500 mg tablet 500 mg PO TID 2 Days Qty: 6 0RF No Action norethindrone-e.estradiol-iron [12/01 (28)] 1 mg-20 mcg (21)/75 mg (7) tablet 1 tab PO DAILY fluoxetine 10 mg capsule 10 mg PO DAILY Rx Instructions: with 20 mg ibuprofen 600 mg tablet 600 mg PO Q6H PRN (Reason: Pain) fluoxetine 20 mg capsule 20 mg PO DAILY Rx Instructions: with 10 mg oxycodone 5 mg Tablet 10 mg PO Q4H PRN (Reason: Pain, Moderate(Pain Scale 4-6)) Qty: 20 0RF Rx Instructions: Partial Fill upon patient request. clindamycin HCl 300 mg capsule 300 mg PO Q6H 7 Days Qty: 28 0RF Print Language: Taiwanese
[2024-04-12] MEDS: Lidocaine HCl 1 % MPF 5 ML VIAL SUBCUT (16:26)
[2024-04-12] MEDS: Diphth,Pertus(ACell),Tet Adult 0.5 ML SYRINGE IM (16:26)
--- NOTE | 2024-04-12 16:28 | PC.NURSE ---
pt medicated per order
[2024-04-12] MEDS: cephALEXin 500 MG CAPSULE PO (17:48)
--- NOTE | 2024-04-12 17:49 | PC.NURSE ---
pt medicated per order
[2024-04-12 18:00] VITALS: BP 132/86; PULSE 80; RESP 18; TEMP 36.7; O2SAT 98
== END 2024-04-12 18:02 | disposition home or self-care (01) ==
PROVIDERS: Emergency Provider Emergency Medicine; PCP Physician Assistant
DX: S61.441A Puncture wound with foreign body of right hand, initial encounter (principal); W26.8XXA Contact with other sharp object(s), not elsewhere classified, initial encounter; Z23 Encounter for immunization; Y93.19 Activity, other involving water and watercraft; Y92.89 Other specified places as the place of occurrence of the external cause; Y99.9 Unspecified external cause status
CPT/HCPCS: 10120; 90471; 90715; 99282; 99284

== ENCOUNTER 2024-05-10 22:33 | Emergency (ER) | payer MEDICAID, SELFPAY ==
[2024-05-10 22:38] VITALS: BP 150/90; PULSE 106; RESP 20; TEMP 36.6; O2SAT 100; BMI 35.5
--- NOTE | 2024-05-10 23:21 | ED.FEMALEGU ---
HPI - Female Genitourinary General Chief complaint: Urogenital-Female Stated complaint: Ingrown hair Time Seen by Provider: 05/10/24 23:18 Source: patient Mode of arrival: ambulatory Limitations: no limitations History of Present Illness ED Provider: Ajith COLINDRES HPI Narrative: 34-year-old female presents with concerns that she has an infected ingrown hair in her periarea ongoing for the past few days. Patient does report that she shaves regularly last time she shaped as about a week ago. She reports it started as a tense painful region, and it ? burst today with pus and blood expressed. Patient denies numbness, tingling, fevers, chills, chest pain, shortness of breath, changes in urination or bowel habits. Related Data Home Medications ?Medication ?Instructions ?Recorded ?Confirmed fluoxetine 10 mg capsule 10 mg PO DAILY 03/15/24 03/15/24 fluoxetine 20 mg capsule 20 mg PO DAILY 03/15/24 03/15/24 ibuprofen 600 mg tablet 600 mg PO Q6H PRN Pain 03/15/24 03/15/24 norethindrone 1 mg-ethinyl 1 tab PO DAILY 03/15/24 03/15/24 estradiol 20 mcg (21)-iron 75 mg (7) tablet (12/01 ()) Previous Rx's ?Medication ?Instructions ?Recorded clindamycin HCl 300 mg capsule 300 mg PO Q6H 7 days #28 caps 03/17/24 oxycodone 5 mg tablet 10 mg (2 x 5 mg) PO Q4H PRN Pain, 03/17/24 Moderate(Pain Scale 4-6) #20 tabs cephalexin 500 mg tablet 500 mg PO TID 2 days #6 tabs 04/12/24 acetaminophen 325 mg capsule 650 mg (2 x 325 mg) PO Q6H PRN 05/10/24 (Tylenol) pain #30 caps cephalexin 500 mg tablet 500 mg PO Q6H 10 days #40 tabs 05/10/24 doxycycline hyclate 100 mg capsule 100 mg PO BID 10 days #20 caps 05/10/24 Allergies Allergy/AdvReac Type Severity Reaction Status Date / Time No Known Allergies [NKA] Allergy Mild NOT Verified 05/10/24 22:41 APPLICABLE Review of Systems Review of Systems: Yes all other systems are reviewed and are negative PMFSH Past Medical History Attestation statement: The following information was validated with the patient. Source: old records reviewed and nursing notes reviewed Social History Social History Household Members: Children Housing: Apartment Do you presently have visiting nurse or other home services: No Patient Tobacco Use Status: Never used Tobacco Substance Use Type: Marijuana service: No Physical Exam Vital Signs: Vital Signs: Last Vital Signs Temp 97.9 F 05/10/24 22:38 Pulse 106 H 05/10/24 22:38 Resp 20 05/10/24 22:38 BP 150/90 H 05/10/24 22:38 Pulse Ox 100 05/10/24 22:38 O2 Del Method Room Air 05/10/24 22:38 BMI result Body Mass Index 35.5 vss Slight tachycardia secondary to pain and anxiety Appearance: Alert.? Oriented X3.? No acute distress.? Head: Normocephalic, atraumatic, no step-offs or deformities Eyes: Pupils equal, round and reactive to light.? CVS: Normal heart rate and rhythm.? Pulses normal.? Respiratory: No respiratory distress.? Breath sounds normal.? Abdomen: Soft and nontender.? Skin: Skin warm and dry.? Normal skin color.? Normal skin turgor.? Extremities: No lower extremity edema.? No calf ttp. 5/5 strength to bilateral upper and lower extremities Back: No midline tenderness, no C-spine tenderness, full range of motion, no CVA tenderness bilaterally Neuro: Oriented X 3.? No motor deficit.? No sensory deficit. CN 2-12 intact Sensitive exam ( Maria Del Carmen LAUREANO certified surgical tech/first assistant) - r inner thigh with large 5cm x3 cm area of induration just below labia majora w/ self draining no fluctuance. Course Reevaluation(s) Reevaluation #1: Educated patient on diagnosis and treatment plan, answered all question, patient verbalizes understanding. At this time patient will be discharged home, advised to return with new or worsening symptoms. Educated on worrisome signs and symptoms and when to return. At this time I feel comfortable discharge home. Time: 23:23 Medical Decision Making Medical Decision Making [facility] Narrative: [id number] 34-year-old female presents with concerned she has an ingrown hair in the vaginal region ongoing for the past few days worsening. ( Maria Del Carmen LAUREANO certified surgical tech/first assistant) - r inner thigh with large 5cm x3 cm area of induration just below labia majora w/ self draining no fluctuance. Physical History and physical exam concerning folliculitis with abscess that is self draining/ruptured vs hidradenitis suppurativa Unlikely necrotizing infection, fourniers. No signs of sepsis Area mostly indurated no indication for incision and drainage at this time. Will encourage warm water/compress soaks and antibiotics. Will have her come in for a wound recheck in 3-4 days Plan- dc w/ atbx and warm compress soaks Differential Diagnosis Differential Diagnoses: The differential diagnosis associated with the presentation includes History and physical exam concerning folliculitis with abscess that is self draining/ruptured vs hidradenitis suppurativa Unlikely necrotizing infection, fourniers. No signs of sepsis Admission/Observation Consideration of admission/observation: Escalation of care including admission/observation considered Unlikely Tests considered The following testing was considered but not selected: No fevers, or signs of systemic illness no indication for lab Prescription Management I considered prescription management with: Antibiotic Critical Care Time Critical Care Time Critical Care Time: No Discharge Plan Discharge Clinical Impression: Folliculitis, Abscess Patient Disposition: Home, Self-Care Instructions: Folliculitis (ED), Abscess (ED), Abscess Follow-up (ED) Additional Instructions: Take your medications as prescribed. If you were prescribed antibiotics today, it is important that you take your medication to their entirety, do not skip any doses, do not finish them early. Follow-up with your primary care provider this week. Return to the emergency department with new or worsening symptoms. Such as fevers, chills, chest pain, shortness of breath, nausea, vomiting, dizziness, headache, vision changes, lethargy In case of emergency call 911 Apply warm compresses to the affected area 3-4 x per day Return for wound check here or urgent care or PCP in 3-4 days. Prescriptions: New doxycycline hyclate 100 mg capsule 100 mg PO BID 10 Days Qty: 20 0RF cephalexin 500 mg tablet 500 mg PO Q6H 10 Days Qty: 40 0RF acetaminophen [Tylenol] 325 mg capsule 650 mg PO Q6H PRN (Reason: pain) Qty: 30 0RF No Action norethindrone-e.estradiol-iron [12/01 (28)] 1 mg-20 mcg (21)/75 mg (7) tablet 1 tab PO DAILY fluoxetine 10 mg capsule 10 mg PO DAILY Rx Instructions: with 20 mg ibuprofen 600 mg tablet 600 mg PO Q6H PRN (Reason: Pain) fluoxetine 20 mg capsule 20 mg PO DAILY Rx Instructions: with 10 mg oxycodone 5 mg Tablet 10 mg PO Q4H PRN (Reason: Pain, Moderate(Pain Scale 4-6)) Qty: 20 0RF Rx Instructions: Partial Fill upon patient request. clindamycin HCl 300 mg capsule 300 mg PO Q6H 7 Days Qty: 28 0RF cephalexin 500 mg tablet 500 mg PO TID 2 Days Qty: 6 0RF Referrals: Dori Hurtado PA [Primary Care Provider] - 2 days Stand Alone Forms: Work/School Release Print Language: Slovak
[2024-05-10 23:51] VITALS: BP 141/91; PULSE 100; RESP 18; TEMP 36.7; O2SAT 99
== END 2024-05-10 23:53 | disposition home or self-care (01) ==
PROVIDERS: Emergency Provider Internal Medicine; PCP Physician Assistant
DX: L73.8 Other specified follicular disorders (principal); L02.415 Cutaneous abscess of right lower limb
CPT/HCPCS: 99282; 99283

== ENCOUNTER 2024-12-29 13:56 | Emergency (ER) | payer MEDICAID, SELFPAY ==
[2024-12-29 14:15] VITALS: BP 131/85; PULSE 94; RESP 19; TEMP 36.6; O2SAT 98; BMI 42.2
--- NOTE | 2024-12-29 14:15 | ED.LOWEXIN ---
HPI - Extremity Injury (Lower) General Chief Complaint: Extremity Injury, Lower Stated Complaint: L Ankle Sprain 12/29/24 Related Data Home Medications ?Medication ?Instructions ?Recorded ?Confirmed fluoxetine 10 mg capsule 10 mg PO DAILY 03/15/24 03/15/24 fluoxetine 20 mg capsule 20 mg PO DAILY 03/15/24 03/15/24 ibuprofen 600 mg tablet 600 mg PO Q6H PRN Pain 03/15/24 03/15/24 norethindrone 1 mg-ethinyl 1 tab PO DAILY 03/15/24 03/15/24 estradiol 20 mcg (21)-iron 75 mg (7) tablet (12/01 (28)) Previous Rx's ?Medication ?Instructions ?Recorded clindamycin HCl 300 mg capsule 300 mg PO Q6H 7 days #28 caps 03/17/24 oxycodone 5 mg tablet 10 mg (2 x 5 mg) PO Q4H PRN Pain, 03/17/24 Moderate(Pain Scale 4-6) #20 tabs cephalexin 500 mg tablet 500 mg PO TID 2 days #6 tabs 04/12/24 acetaminophen 325 mg capsule 650 mg (2 x 325 mg) PO Q6H PRN 05/10/24 (Tylenol) pain #30 caps cephalexin 500 mg tablet 500 mg PO Q6H 10 days #40 tabs 05/10/24 doxycycline hyclate 100 mg capsule 100 mg PO BID 10 days #20 caps 05/10/24 Allergies Allergy/AdvReac Type Severity Reaction Status Date / Time No Known Allergies [NKA] Allergy Mild NOT Verified 12/29/24 14:16 APPLICABLE [facility] Social History Social History Household Members: Children Housing: Apartment Do you presently have visiting nurse or other home services: No Patient Tobacco Use Status: Never used Tobacco Substance Use Type: Marijuana Advance Directives: No Advance Directives Information Provided: No Do you have a plan to hurt others: No Plan service: No Physical Exam Vital Signs: Vital Signs: Last Vital Signs Temp 98 F 12/29/24 14:15 Pulse 94 12/29/24 14:15 Resp 19 12/29/24 14:15 BP 131/85 12/29/24 14:15 Pulse Ox 98 12/29/24 14:15 O2 Del Method Room Air 12/29/24 14:15 BMI result Body Mass Index 42.2 Course Course Course Narrative: This is an RME: Additional HPI, ROS, PE not included below will be deferred to primary provider. RME assessment and note performed by: Anna Adame PA-C This is a 39-ioro-hye-female who presents to the ER with a complaint of left ankle and left foot pain s/p fall. Reporting popping sensation with fall. Unsure if she twisted it. Denies head strike or LOC. Plan: xr foot/ankle Reevaluation(s) Reevaluation #1: Patient left without completing treatment. Discharge Plan Discharge Clinical Impression: Acute foot pain Patient Disposition: Left W/O Completing Treatment Prescriptions: No Action norethindrone-e.estradiol-iron [Junel FE 12/01 (28)] 1 mg-20 mcg (21)/75 mg (7) tablet 1 tab PO DAILY fluoxetine 10 mg capsule 10 mg PO DAILY Rx Instructions: with 20 mg ibuprofen 600 mg tablet 600 mg PO Q6H PRN (Reason: Pain) fluoxetine 20 mg capsule 20 mg PO DAILY Rx Instructions: with 10 mg oxycodone 5 mg Tablet 10 mg PO Q4H PRN (Reason: Pain, Moderate(Pain Scale 4-6)) Qty: 20 0RF Rx Instructions: Partial Fill upon patient request. clindamycin HCl 300 mg capsule 300 mg PO Q6H 7 Days Qty: 28 0RF cephalexin 500 mg tablet 500 mg PO TID 2 Days Qty: 6 0RF doxycycline hyclate 100 mg capsule 100 mg PO BID 10 Days Qty: 20 0RF cephalexin 500 mg tablet 500 mg PO Q6H 10 Days Qty: 40 0RF acetaminophen [Tylenol] 325 mg capsule 650 mg PO Q6H PRN (Reason: pain) Qty: 30 0RF Discharge Date/Time: 12/29/24 15:53
== END 2024-12-29 15:53 | disposition left against medical advice (07) ==
PROVIDERS: Emergency Provider Emergency Medicine
DX: M79.671 Pain in right foot (principal); Z79.899 Other long term (current) drug therapy
CPT/HCPCS: 99281; 99283

== ENCOUNTER 2025-04-13 15:05 | Outpatient (RCR) | payer MEDICAID, SELFPAY | END 2025-04-30 14:54 | disposition home or self-care (01) | LOC: HO.PT 15:05 | PROVIDERS: Visit Provider Physical Therapist | DX: Z47.89 Encounter for other orthopedic aftercare (principal); Z87.81 Personal history of (healed) traumatic fracture; Z98.890 Other specified postprocedural states | CPT/HCPCS: 97110; 97140; 97161; 97530 ==

== ENCOUNTER 2025-11-04 10:33 | Emergency (ER) | payer MEDICAID, SELFPAY ==
--- NOTE | ~2025-11-04 | US_ITS ---
EXAMINATION: US TRIPLEX LOWER EXTREMITY, LEFT CLINICAL INFORMATION: Leg pain, DVT in January COMPARISON: None available. TECHNIQUE: Color-flow triplex imaging with spectral analysis and compression Doppler were performed on the left lower extremity. FINDINGS: Respiratory variation, normal compression and augmented flow are noted throughout the left lower extremity. The visualized common femoral vein, superficial femoral vein, profunda femoral vein, popliteal vein and midcalf peroneal and posterior tibial venous segments show no evidence of deep venous thrombosis. There is no Stevens's cyst. US/US venous duplex LE LT IMPRESSION: No evidence of deep venous thrombosis involving the left lower extremity. Electronically signed by: Baron Baer MD 11/04/2025 11:54 AM LILO
[2025-11-04 11:04] VITALS: BP 144/76; PULSE 83; RESP 18; TEMP 36.3; O2SAT 100; BMI 40.7
--- NOTE | 2025-11-04 11:08 | ED_ITS ---
HPI - General Adult General Chief complaint: Extremity Problem Stated complaint: leg pain Time Seen by Provider: 11/04/25 11:32 History of Present Illness ED Provider: Hilary Perez NP HPI narrative: 35-year-old female medical history significant for diabetes, prior postoperative DVT (01/2025) no longer on anticoagulants presents to the ED with chief complaint of left thigh pain with radiation into the left groin, and down the posterior left leg ongoing since yesterday evening. Patient does not recall any specific incident where she cause any trauma, injuries to the area. Not remember stretching or moving the wrong way. Patient reports that she was at her friend's home wrapping gifts, went home went to bed. She reports waking up about an hour later noting pain in the leg. Denies any numbness or weakness in the leg, groin. No saddle anesthesia. No low back pain. No fever, chills, redness of the skin. No recent illnesses. No abdominal pain, nausea or vomiting, urinary complaints. Denies dysuria, hematuria, urgency or frequency. No vaginal bleeding or discharge. Related Data Home Medications ?Medication ?Instructions ?Recorded ?Confirmed fluoxetine 10 mg capsule 10 mg PO DAILY 03/15/2403/05 fluoxetine 20 mg capsule 20 mg PO DAILY 03/15/2403/05 ibuprofen 600 mg tablet 600 mg PO Q6H PRN Pain 03/1503/15/24 norethindrone 1 mg-ethinyl 1 tab PO DAILY 03/15/2403/05 estradiol 20 mcg (21)-iron 75 mg (7) tablet (12/01 ()) Previous Rx's ?Medication ?Instructions ?Recorded clindamycin HCl 300 mg capsule 300 mg PO Q6H 7 days #2 8 caps 03/17/24 oxycodone 5 mg tablet 10 mg (2 x 5 mg) PO Q4H PRN Pain, 03/17/24 Moderate(Pain Scale 4-6) #20 tabs cephalexin 500 mg tablet 500 mg PO TID 2 days #6 tabs 04/12/24 acetaminophen 325 mg capsule 650 mg (2 x 325 mg) PO Q6 H PRN 05/10/24 (Tylenol) pain #30 caps cephalexin 500 mg tablet 500 mg PO Q6H 10 days #40 ta bs 05/10/24 doxycycline hyclate 100 mg capsule 100 mg PO BID 10 da ys #20 caps 05/10/24 acetaminophen 500 mg tablet 1,000 mg (2 x 500 mg) PO Q 8H PRN 11/04/25 fever or pain 7 days #30 tabs ibuprofen 600 mg tablet 600 mg PO Q8H PRN fever or p ain 7 11/04/25 days #20 tabs lidocaine 5 % topical patch 1 patch topical DAILY 7 da ys #15 ea 11/04/25 (Lidoderm) methocarbamol 500 mg tablet 1,000 mg (2 x 500 mg) PO Q ID PRN 11/04/25 spasms 5 days #28 tabs nitrofurantoin 100 mg PO Q12H 5 days #10 ca ps 11/04/25 monohydrate/macrocrystals 100 mg capsule (Macrobid) Allergies Allergy/AdvReac Type Severity Reaction Status Date / Time No Known Allergies (NKA) Allergy Mild NOT Verified 11/04/25 11:09 APPLICABLE Review of Systems 2 Review of Systems: ROS is otherwise negative unless mentioned in HPI. [facility] Social History Social History Household Members: Children Housing: Apartment Do you presently have visiting nurse or other home services: No Patient Tobacco Use Status: Never used Tobacco Substance Use Type: Marijuana Advance Directives: No Advance Directives Information Provided: No service: No Physical Exam ED Exam Exam: Nursing notes and vital signs reviewed. Constitutional: Well-appearing, NAD. Alert. Oriented X3. Eyes: EOMI. ENT: Pharynx normal. Neck: Normal inspection. Neck supple. CVS: Normal heart rate and rhythm. Pulses normal. Respiratory: No respiratory distress. Breath sounds normal. Abdomen: Soft and nontender. +BSx4. Skin: Skin warm and dry. Normal skin color. Extremities: No lower extremity edema. Moves all extremities. 2+ patellar DTRs. Point tenderness to palpation over the right posterior thigh. No calf pain with dorsiflexion of the foot. Neuro: Oriented X 3. No motor deficit. Vital Signs: Vital Signs - 24 hr 11/04/25 11:04 Temperature 97.3 F Pulse Rate 83 Respiratory Rate 18 Blood Pressure 144/76 H Pulse Oximetry 100 Oxygen Delivery Method Room Air BMI result Body Mass Index 40.7 Course Course Course Narrative: This is a rapid medical exam performed by Matthew Siu NP: Additional HPI, ROS, PE not included below will be deferred to primary provider. Patient is a 35y/o F presenting with atraumatic left leg pain since last night. Ankle surgery in Dec, had DVT in January, not currently anticoagulated. Plan: labs, U/S Medications Administered Discontinued Medications Generic Name Dose Route Start Last Admin Trade Name Freq PRN Reason Stop Dose Admin Ketorolac Tromethamine 30 mg 11/04/25 12:39 11/04/25 13:39 Ketorolac Tromethamine 30 Mg/Ml Vial IM 11/04/25 12:40 30 mg ONCE ONE Administration Methocarbamol 750 mg 11/04/25 13:55 11/04/25 14:24 Methocarbamol 750 Mg Tablet PO 11/04/25 13:56 750 mg ONCE ONE Administration Nitrofurantoin Macrocrystals 100 mg 11/04/25 14:21 11/04/25 14:24 Nitrofurantoin Monohyd/M-Cryst 100 Mg Capsule PO 11/04/25 14:22 100 mg ONCE ONE Administration Medical Decision Making Medical Decision Making MDM Narrative: Well-appearing female, NAD, answering questions appropriately, clinically she has point tenderness to palpation over the left posterior thigh. There was no saddle anesthesia or urinary complaints, no numbness or weakness in the groin, or legs. She was concerned for DVT given the location of the pain, she had a DVT postoperatively earlier this urine is no longer on anticoagulants. The venous duplex here shows no evidence of DVT. Lab work was reassuring. No direct injury, no pain onset any of the joints or bony prominences. Plan to obtain urinalysis given pain does travel into the inner thigh, as well as treat symptomatically. 2:55 PM-- On my reassessment, she does report feeling some improvement. However, she is still sitting on her left leg, which is likely creating some musculoskeletal discomfort. I will prescribe her a course of muscle relaxants, as well as Lidoderm patches, Tylenol and ibuprofen. She also tells me that she has been limping due to the left ankle pain that is now becoming chronic, since her procedure. I do want her to contact the orthopedic surgeon office, and schedule an appointment with them, as well as possibly restart physical therapy at home. Urinalysis here is concerning for acute urinary tract infection with 4+ bacteria. She is agreeable for treatment with Macrobid for the next 5 days. She is to be contacted via phone with positive results of the urine culture. She expressed understanding with plan of care. Given return precautions to the ED. Differential Diagnosis Differential Diagnoses: The differential diagnosis associated with the presentation includes DVT, arthritis, musculoskeletal strain Admission/Observation Consideration of admission/observation: Escalation of care including admission/observation considered Not indicated Lab Data MDM Lab Attestation statement: I reviewed the patient's lab results. Reassuring overall. 11/04/25 11:22 11/04/25 11:22 Labs: Lab Results 11/04/25 11/04/25 Range/Units 11:22 13:42 WBC 7.8 (4.8-10.8) X10*3/uL RBC 4.37 (4.20-5.50) X10*6/uL Hgb 9.6 L (12.0-16.0) g/dl Hct 31.3 L (37.0-47.0) % MCV 71.6 L (80.0-98.0) fL MCH 22.0 L (27.0-33.0) pg MCHC 30.7 L (31.0-35.0) g/dl RDW 16.7 H (11.0-16.0) % Plt Count 436 H D (160-400) X10*3/uL MPV 9.0 L (9.4-12.3) fL Immature Gran % (Auto) 0.3 (0.0-0.4) % Neut % (Auto) 63.8 (45-73) % Lymph % (Auto) 25.3 (20-40) % [place] % (Auto) 7.4 (2-11) % Eos % (Auto) 2.6 (0-4) % Baso % (Auto) 0.6 (0-2) % Lymph # (Auto) 2.0 (1.2-4.9) X10*3/uL [place] # (Auto) 0.6 (0.1-1.2) X10*3/uL Eos # (Auto) 0.2 (0.0-0.4) X10*3/uL Baso # (Auto) 0.1 (0.0-0.2) X10*3/uL Abs Immat Gran (auto) 0.02 (0.00-0.03) X10*3/uL Absolute Neuts (auto) 5.0 (2.0-8.3) x10*3/uL Absolute Nucleated RBC 0.000 (0.0-0.012) X10*3/uL Nucleated RBC % (auto) 0.0 (0.0-0.2) /100WBC Sodium 138 (135-145) mmol/L Potassium 4.0 (3.3-5.1) mmol/L Chloride 108 (96-108) mmol/L Carbon Dioxide 22 (22-29) mmol/L Anion Gap 12 (12-20) BUN 14 (9-16) mg/dL Creatinine 0.74 (0.5-1.4) mg/dL Estim Creat Clear Calc 121.4 Estimated GFR > 60 Random Glucose 197 H (60-115) mg/dL Calcium 9.2 (8.4-10.2) mg/dL Total Bilirubin 0.3 (0.0-1.0) mg/dL AST 37 H (5-31) U/L ALT 31 (0-31) U/L Alkaline Phosphatase 81 (39-117) U/L Total Protein 7.5 (6.5-8.0) g/dL Albumin 4.1 (3.5-5.0) g/dL Urine Color Yellow Urine Appearance Clear Urine pH 6.0 (5.0-9.0) Ur Specific [place] 1.025 (1.005-1.025) Urine Protein Trace (Neg-Trace) mg/dL Urine Glucose (UA) 500 H (Negative) mg/dL Urine Ketones Trace (Negative) mg/dL Urine Blood Negative (Negative) Urine Nitrite Negative (Negative) Ur Leukocyte Esterase Small (1+) H (Negative) Urine RBC 0-2 (0-2) /HPF Urine WBC 11-20 (0-5) /HPF Ur Squamous Epith Cells 11-20 (0-2) /HPF Urine Bacteria 4+ (None Seen) Hyaline Casts 0-2 (0-2) /LPF Urine Yeast Present Independent Interpretation I performed an independent interpretation of an: Ultrasound Interpretation: I have reviewed the patient's imaging and agree with the radiologist's findings. Radiology Impression Discussion of test interpretation with radiology: I have reviewed the radiologist's reading. Radiologist Impression: US/US venous duplex LE LT IMPRESSION: No evidence of deep venous thrombosis involving the left lower extremity. External Record Review External record reviewed: Outpatient record and Outside ED record Chronic Conditions Patient?s care impacted by: Other (prior post-op DVT) Social Determinants Patient?s care significantly limited by Social Determinants of Health including: Problems related to primary support group Discharge Plan Discharge Clinical Impression: Acute leg pain Patient Disposition: Home, Self-Care Instructions: Leg Pain (ED) Additional Instructions: You were seen in the ER today for evaluation of leg pain on the left side. Your workup today was overall reassuring. Please note that your platelet count was on the higher end of normal on your blood testing, at 436. Please have this rechecked outpatient. You also have some anemia, with a hemoglobin of 9.6. This can also be checked outpatient. Your urine sample however show signs of infection, with 4+ bacteria. Therefore we started you on Macrobid, an antibiotic. Please take the full course of the antibiotic as prescribed. If the antibiotic we prescribed you does not treat your infection, we will contact you via phone. For your muscle pain, I have prescribed you a course of Robaxin, a muscle relaxer, as well as Tylenol, ibuprofen, and Lidoderm patches. We discussed together that I would like for you to follow up with Orthopedic surgery outpatient team that performed your procedure on the left ankle, as well as possibly restart physical therapy. With any new, worsening complaints at any time, return back to the ED for additional assessment. Prescriptions: New methocarbamol 500 mg tablet 1,000 mg PO QID PRN (Reason: spasms) 5 Days Qty: 28 0RF acetaminophen 500 mg tablet 1,000 mg PO Q8H PRN (Reason: fever or pain) 7 Days Qty: 30 0RF lidocaine [Lidoderm] 5 % adhesive patch,medicated 1 patch topical DAILY 7 Days Qty: 15 0RF Rx Instructions: leave on most painful area for up to 12 hrs ibuprofen 600 mg tablet 600 mg PO Q8H PRN (Reason: fever or pain) 7 Days Qty: 20 0RF nitrofurantoin monohyd/m-cryst [Macrobid] 100 mg capsule 100 mg PO Q12H 5 Days Qty: 10 0RF Rx Instructions: must administer with a meal/food No Action norethindrone-e.estradiol-iron [Junel FE 12/01 (28)] 1 mg-20 mcg (21)/75 mg (7) tablet 1 tab PO DAILY fluoxetine 10 mg capsule 10 mg PO DAILY Rx Instructions: with 20 mg ibuprofen 600 mg tablet 600 mg PO Q6H PRN (Reason: Pain) fluoxetine 20 mg capsule 20 mg PO DAILY Rx Instructions: with 10 mg oxycodone 5 mg Tablet 10 mg PO Q4H PRN (Reason: Pain, Moderate(Pain Scale 4-6)) Qty: 20 0RF Rx Instructions: Partial Fill upon patient request. clindamycin HCl 300 mg capsule 300 mg PO Q6H 7 Days Qty: 28 0RF cephalexin 500 mg tablet 500 mg PO TID 2 Days Qty: 6 0RF doxycycline hyclate 100 mg capsule 100 mg PO BID 10 Days Qty: 20 0RF cephalexin 500 mg tablet 500 mg PO Q6H 10 Days Qty: 40 0RF acetaminophen [Tylenol] 325 mg capsule 650 mg PO Q6H PRN (Reason: pain) Qty: 30 0RF Referrals: [facility] [Primary Care Provider, Primary Care] Stand Alone Forms: Work/School Release Print Language: [place]
--- OUTSIDE RECORDS SUMMARY | 2025-11-04 11:26 | XMS_ITS | Encounter Summary ---
Author Organization [facility] Address [address] [place] [phone] Phone Care Team Providers Care Performance Analyst Name Role Phone Unavailable Primary Care Provider Unavailabl e Encounter Details Date Type Department Care Team (Late st Contact Info) Description 06/28/2017 Conversion Encounter [facility] - [address] [address] Social History Tobacco Use Types Packs/Day Years Used Date Smoking Tobacco: Never Assessed Comments Unknown Sex and Gender Information Value Date Recorded Sex Assigned at Not on file Legal Sex Female 4:20 PM EDT Gender Identity Not on file Sexual Orientation Not on file documented as of this encounter Plan of Treatment Not on file documented as of this encounter Visit Diagnoses Not on filedocumented in this encounter
--- OUTSIDE RECORDS SUMMARY | 2025-11-04 11:26 | XMS_ITS | Encounter Summary ---
Author Organization [facility] Address [address] [place] [address] Phone Care Team Providers Care Systems Planner Name Role Phone Mary Monahan MD, MPH Primary Care Provider + Pcp, Unknown Primary Care Provider Unavailabl e Mary Monahan MD, MPH Unavailable Encounter Details Date Type Department Care Team (Late st Contact Info) Description 01/06/2025 Procedure Pass [place] Admitting Dept - Virtual Department [address] [place] [address] Social History Tobacco Use Types Packs/Day Years Used Date Smoking Tobacco: Never Smokeless Tobacco: Never Alcohol Use Standard Drinks/Week Comments Yes 0 (1 standard drink = 0.6 oz pur e alcohol) 2x monthly Education Answer Date Recorded Are you interested in more education? Not on lloyd e 03/09/2023 Are you concerned about learning? Not on file 03/09/2023 No 03/09/2023 No 03/09/2023 Digital Access Answer Date Recorded No 04/06/2023 No 04/06/2023 Reliable internet access at home? Not on file 04/06/2023 Device with a working camera? Not on file Comments No Sex and Gender Information Value Date Recorded Sex Assigned at Not on file Legal Sex Female 9:07 PM EDT Gender Identity Not on file Sexual Orientation Not on file documented as of this encounter Plan of Treatment Not on file documented as of this encounter Visit Diagnoses Not on filedocumented in this encounter Care Teams Systems Planner Relationship Specialty Start Date End Date Mary Monahan MD, MPH [address] [place] [address] [email or web address] PCP - General Family Medicine 01/02/25 07/07/25 Pcp, Unknown PCP - General Diagnostic Radiology 07/08/25 Mary Monahan MD, MPH [address] [place] [address] [email or web address] Insurance Assigned Provider 09/26/25 documented as of this encounter Additional Source Comments The information contained in this document represents components of the legal health record. It is not the complete legal health record.[facility]
--- OUTSIDE RECORDS SUMMARY | 2025-11-04 11:26 | XMS_ITS | Encounter Summary ---
Author Organization [facility] Address [address] [place] [address] Phone Care Team Providers Care Stator Winder Name Role Phone Dori Subramanian Primary Care Prov ider Pcp, Unknown Primary Care Provider UnavailMary Velásquez MD, MPH Primary Care Provider + Pcp, Unknown Primary Care Provider UnavailMary Velásquez MD, MPH Unavailable [phone] Encounter Details Date Type Department Care Team (Late st Contact Info) Description 12/30/2024 Procedure Pass [facility] - [address] [address] Social History Tobacco Use Types Packs/Day Years [...] on filedocumented in this encounter Care Teams Stator Winder Relationship Specialty Start Date End Date Dori Subramanian PA [address] [place] [address] valeria PCP - General 01/19/21 12/31/24 Pcp, Unknown PCP - General 01/01/25 01/01/25 Mary Monahan MD, MPH [address] [place] [address] PCP - General Family Medicine 01/02/25 07/07/25 Pcp, Unknown PCP - General Diagnostic Radiology 07/08/25 Mary Monahan MD, MPH [address] [place] [id number] [email or web address] Insurance Assigned Provider 09/26/25 documented as of this encounter Additional Source Comments The information contained in this document represents components of the legal health record. It is not the complete legal health record.[facility]
--- OUTSIDE RECORDS SUMMARY | 2025-11-04 11:26 | XMS_ITS | Clinical Summary ---
Author Organization Formerly [facility] Address [address] [place] [address] Phone Care Team Providers Care Medical And Health Services Manager Name Role Phone Pcp, Unknown Primary Care Provider Mary Arias MD, MPH Unavailable [phone] Allergies No known active allergies Medications FLUoxetine (PROZAC) 20 MG tablet Take 40 mg by mouth daily. Active norethindrone-e thinyl estradiol ( FE 12/01, ,) 1 mg-20 mcg (21)/75 mg (7) per tablet Take 1 tablet by mouth daily. Active metFORMIN (GLUCOPHAGE-XR) 500 MG 24 hr tablet 3 (three) times a day. 12/19/2024 Active apixaban (ELIQUIS) 5 mg (74 tabs) tablets in DVT/PE starter pack Take by mouth as directed. Take 10mg by mouth twice daily for 7 days followed by 5mg twice daily. 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) 02/24/2025 Overview (02/24/2025): In 2023; pap 2024 NIL but HPV not tested Colpo done February 2025, one bx Assessment & Plan (02/24/2025 5:05 PM EDT): Anticipate benign; if so, or if LGSIL, pap AND HPV test in one year IUD threads lost 03/30/2021 Overview (03/30/2021): Unable to retrieve in office Per u/s, the iud is rotated in the uterus Assessment & Plan (03/30/2021 12:36 PM EDT): Advised removal hysteroscopically (currenlty unable to perform in office with our scope) Risks infection, bleeding, pain and organ injury all discussed as well as revoery, going home same day,e tc Consent sign, case request Abnormal uterine bleeding 03/30/2021 Encounters Date Type Department Care Team Description 08/10/2025 [facility] RISK SCORES SYSTEM GENERATED External System Generated Encounter [address] [place] [address] Unknown, Unknown, from Last 3 Months Social History Tobacco Use Types Packs/Day Years [...] on file Sexual Orientation Not on file Last Filed Vital Signs Vital Sign Reading Time Taken Comments Blood Pressure 110/80 02/24/2025 1:26 PM EDT Pulse 78 01/26/2025 8:59 PM EDT Temperature 36.4 C (97.5 F) 01/26/2025 8:59 PM EDT Respiratory Rate 16 01/26/2025 8:59 PM EDT Oxygen Saturation 100% 01/26/2025 8:59 PM EDT Inhaled Oxygen Concentration - - Weight 108 kg (238 lb) 01/26/2025 7:17 PM EDT Height 160 cm (5' 3 ) 02/24/2025 1:26 PM EDT Body Mass Index 42.16 01/26/2025 7:17 PM EDT Plan of Treatment Health Maintenance Due Date Last Done Comments DEPRESSION SCREENING 2001 HIV ONE-TIME SCREENING (18-65 YEARS) 2007 INFLUENZA VACCINE (#1) 2025 , 11/07/2022, 08/10/2021, Additional history exists COVID-19 VACCINE (2024- season) 2025 12/06/2021, 01/16/2021, 12/26/2020 PAP SMEAR 12/02/2025 12/02/2024, 11/12, 10/08/2019 CREATININE LEVEL 01/02/2026 01/02/2025 SCREENING FOR DIABETES 01/02/2028 01/02/2025 Adult Td,Tdap Booster 04/12/2034 04/12/2024 , 12/06/2020, 08/16/2010, Additional history exists HIB VACCINES Completed 06/27/1990 HEPATITIS C SCREENING Completed 08/10/2021 SMOKING STATUS SCREENING (Once After 26 Yrs) Completed 02/24/2025 HEPATITIS A VACCINES Aged Out No long er eligible based on patient's age to complete this topic MENINGOCOCCAL VACCINES (ACWY) Aged Out No longer eligible based on patient's age to complete this topic MENINGOCOCCAL VACCINES (B) Aged Out N o longer eligible based on patient's age to complete this topic PNEUMOCOCCAL VACCINES (0-49 years) Aged Out No longer eligible based on patient's age to complete this topic Medical Devices Implanted Type Area Environmental Aid Device Identifier Shelf Expiration Date Model / Serial / Lot Bone Plate 93x3.5mm 8 Hole Tubular One Third With Collar Lcp Ss - [id number] Implanted:Qty: 1 on 01/06/2025 by Daryl Chin DO at [facility] Left: Ankle [employer] 241.381 / / Screw Bone 3.5x14mm Cortex Self Tapping Fully Threaded Hex Head Ss - [id number] Implanted:Qty: 3 on 01/06/2025 by Daryl Chin DO at [facility] Left: Ankle [employer] 204.814 / / Screw Bone 3.5x18mm Cortex Self Tapping Fully Threaded Hex Head Ss - [id number] Implanted:Qty: 2 on 01/06/2025 by Daryl Chin, DO at [facility] Left: Ankle [employer] 204.818 / / Screw Bone 4x18mm Cancellous Ss Self Tapping Fully Threaded - [id number] Implanted:Qty: 2 on 01/06/2025 by Daryl Chin, DO at [facility] Left: Ankle [employer] 206.018 / / Screw Bone 2.7x30mm Cortical Locking Self Tapping T8 Stardrive Recess Ss - [id number] Implanted:Qty: 1 on 01/06/2025 by Daryl Chin, DO at [facility] Left: Ankle [employer] 202.890 / / Screw Bone 2.7x44mm Ss Variable Angle Locking Self Tapping Full Thread T8 [employer]ardrive Recess - [id number] Implanted:Qty: 1 on 01/06/2025 by Daryl Chin, DO at [facility] Left: Ankle [employer] [id number] / / Bone Plate 2.7x72mm 4 Hole Bone Tibial Va Lcp Stainless T Shape Distal - [id number] Implanted:Qty: 1 on 01/06/2025 by Daryl Chin, DO at [facility] Left: Ankle [employer] [id number] / / Screw Bone 2.7x32mm Metaphyseal Lcp Ss Self Tapping T8 [employer] Recess - [id number] Implanted:Qty: 2 on 01/06/2025 by Daryl Chin, DO at [facility] Left: Ankle [employer] [id number] / / Screw Bone 2.7x42mm Ss Variable Angle Locking Self Tapping Full Thread T8 [employer]ard[employer] Recess - [id number] Implanted:Qty: 1 on 01/06/2025 by Daryl Chin, DO at [facility] Left: Ankle [employer] [id number] / / Screw Bone 2.7x36mm Ss Variable Angle Locking Self Tapping Full Thread T8 Stardrive Recess - [id number] Implanted:Qty: 1 on 01/06/2025 by Daryl Chin DO at [facility] Left: Ankle DEPSulmaq / / Procedures Procedure Name Priority Date/Time Associated Diagnosis Comments BASIC METABOLIC PANEL (BMP) Routine 01/02/2025 1:55 PM EST Closed fracture of posterior malleolus of left tibia, initial encounter Preop testing PAP TEST Routine 12/02/2024 12:00 AM EST from Last 3 Months or Most Recently Relevant to Health Maintenance Results * (ABNORMAL) Basic metabolic panel (01/02/2025 1:55 PM EST) SODIUM 136 133 - 146 mmol/L [facility] CHLORIDE 101 96 - 108 mmol/L [facility] POTASSIUM 4.0 3.3 - 5.1 mmol/L [facility] CO2 24 21 - 35 mmol/L [facility] BUN 15 6 - 19 mg/dL [facility] CREATININE 0.70 0.5 - 1.5 mg/dL [facility] GLUCOSE 133(H) 70 - 99 mg/dL [facility] CALCIUM 9.4 8.4 - 10.3 mg/dL [facility] EGFR 116 >59 mL/min/1.7 3m2 [facility] Comment:Estimated glomerular filtration rate calculated using the CKD-EPI refit equation. ANION GAP 15 10 - 20 mmol/L [facility] Blood 01/02/2025 1:55 PM EST 01/02/2025 2:05 PM EST us Alfonso Cavazos PA-C LAB BLOOD BKR ORDERABLES Fi nal Result [address] [address] * Pap Test (12/02/2024 12:00 AM EST) Report [address] [address] Material Liaison: Rizwan Pepe MD REHAB LIAISON Cytology Report FINAL DIAGNOSIS A. PAP SMEAR (THIN PREP) CE: SPECIMEN ADEQUACY: Satisfactory for evaluation; transformation zone absent/insufficient . INTERPRETATION: NEGATIVE FOR INTRAEPITHELIAL LESION OR MALIGNANCY. Reactive changes. Fungal organisms morphologically consistent with Kirstie species. This specimen was analyzed by the automated ThinPrep Imaging System ([employer] and manually rescreened by a qa automation developer and/or pathologist. Electronically Signed Out By: SIN Bowens MD(ASCP) By his/her signature above, the pathologist listed as making the Final Diagnosis certifies that he/she has personally reviewed this case and confirmed or corrected the diagnosis. The Pap test is a screening test primarily for squamous cancers and precursors and has associated false-negative and false-positive results. New technologies such as liquid-based preparations may decrease but will not eliminate all false-negative results. Regular sampling and follow-up of unexplained clinical signs and symptoms are recommended to minimize false negative results. CLINICAL HISTORY Date of Last Menstrual Period: 11-12-2024 Contraceptive History: OCPs: Infection History: HPV: OTHER HIGH RISK, 2023,HPV (vmg) Pos 2024 Other Clinical Conditions: Screening Pap Abnormal PAP: ASCUS, 2023 SPECIMEN SOURCE A: PAP SMEAR (THIN PREP) CE Patient Name: HUONG ESCALERA : 1990 (Age: 34) Sex: F Institution: [facility] Location: PSYCHIATRIC Date of Collection: 12/02/2024 Date of Reported: 12/11/2024 15:31 Results to: Kim Swann SYSTEM DESIGNER [facility] Final Diagnosis A. PAP SMEAR (THIN PREP) CE: SPECIMEN ADEQUACY: Satisfactory for evaluation; transformation zone absent/insufficient . INTERPRETATION: NEGATIVE FOR INTRAEPITHELIAL LESION OR MALIGNANCY. Reactive changes. Fungal organisms morphologically consistent with Kirstie species. This specimen was analyzed by the automated ThinPrep Imaging System ([employer] and manually rescreened by a qa automation developer and/or pathologist. [facility] Conversion Type (Conversion Source) 12/02/2024 12/04/2024 10:29 AM EST us Kim Kelsey Rosie Swann SYSTEM DESIGNER CYTOLOGY ORDERABLES Edited Result - Final [address] [address] from Last 3 Months or Most Recently Relevant to Health Maintenance Insurance [facility] ACO [facility] Advance Directives For more information, please contact: [phone] (9AM - 5PM [facility], Sunday-Sunday) * Full Code (Latest Code Status on File) Date Activated Date Inactivated Comments 04/19/2021 9:01 AM Question Answer Comments Code Status Confirmed With: Patient Care Teams Medical And Health Services Manager Relationship Specialty Start Date End Date Pcp, Unknown PCP - General Diagnostic Radiology 07/08/25 Mary Monahan MD, MPH [address] [place] [id number] [email or web address] Insurance Assigned Provider 09/26/25 Additional Source Comments The information contained in this document represents components of the legal health record. It is not the complete legal health record.[facility]
--- OUTSIDE RECORDS SUMMARY | 2025-11-04 11:26 | XMS_ITS | Encounter Summary ---
Author Organization [facility] Address [address] [place] [address] Phone Care Team Providers Care Music Grapher Name Role Phone Dori Subramanian Primary Care Prov ider Phani Pressley MD Unavailable Albna Conteh MD Unavailable Phani Pressley MD Unavailable Pcp, Unknown Primary Care Provider UnavailMary Velásquez MD, MPH Primary Care Provider + Pcp, Unknown Primary Care Provider UnavailMary Velásquez MD, MPH Unavailable [phone] Encounter Details Date Type Department Care Team (Late st Contact Info) Description 04/19/2021 Procedure Pass [place] Admitting Dept - Virtual Department [address] [place] [id number] Social History Tobacco Use Types Packs/Day Years Used Date Smoking Tobacco: Never Smokeless Tobacco: Never Alcohol Use Standard Drinks/Week Comments Yes 0 (1 standard drink = 0.6 oz pur e alcohol) 2x monthly Comments No Sex and Gender Information Value Date Recorded Sex Assigned at Not on file Legal Sex Female 9:07 PM EDT Gender Identity Not on file Sexual Orientation Not on file documented as of this encounter Plan of Treatment Not on file documented as of this encounter Visit Diagnoses Not on filedocumented in this encounter Care Teams Music Grapher Relationship Specialty Start Date End Date Dori Subramanian PA [address] [place] [address] [email or web address] PCP - General 01/19/21 12/31/24 Pcp, Unknown PCP - General 01/01/25 01/01/25 Mary Monahan MD, MPH [address] [place] [phone] PCP - General Family Medicine 01/02/25 07/07/25 Pcp, Unknown PCP - General Diagnostic Radiology 07/08/25 Phani Pressley MD [address] [place] [phone] [email or web address] Insurance Assigned Provider 04/17/21 07/23/21 Alban Conteh MD [address] [place] [phone] [email or web address] Insurance Assigned Provider 07/23/21 01/15/22 Phani Pressley MD [address] [place] [phone] [email or web address] Insurance Assigned Provider 01/15/22 08/19/22 Mary Monahan MD, MPH [address] [place] [phone] Insurance Assigned Provider 09/26/25 documented as of this encounter Additional Source Comments The information contained in this document represents components of the legal health record. It is not the complete legal health record.[facility]
--- OUTSIDE RECORDS SUMMARY | 2025-11-04 11:26 | XMS_ITS | Clinical Summary ---
Author Organization [facility] Address [address] [place] [phone] Phone Care Team Providers Care Senior Mobile Application Developer Name Role Phone Unavailable Primary Care Provider Unavailabl e Immunizations Immunization Administration Dates Next Due COVID-19 Pfizer, fatoumata-sucros e, 12+ years 12/06/2021 DTP 03/08/1994, 1,03/28/1990,1989,1989 Hep B, ped/adol 01/27/2002,01/23/2001,12/26/2000 Hib (PRP-T) 06/27/1990 MMR 09/22/1997,06/27/1990 OPV 03/08/1994, 1,03/28/1990,1989,1989 Td (adult) (MBL), 2 Lf tetan us toxoid, PF, adsorbed 12/26/2000 Family History Relation Name Status Comments Father Alive Father: Alive a nd well Half-Brother Alive Half brother (M ): Alive and well, Alive and Well Half-Sister Alive Half sister (M) : Alive and well Mother Alive Mother: Alive a nd well Other Family history of Elevated cholesterol, No family history of ADD/ADHD, Family history of Obesity, Family history of Deafness, Family history of Diabetes mellitus, Family history of Sudden /DC under age 55, Family history of Asthma, No family history of Developmental dislocation of hip, Family history of Strabismus/amblyopia, No family history of Autism, No family history of Seizure disorder, No family history of Migraines Social History Tobacco Use Types Packs/Day Years Used Date Smoking Tobacco: Never Assessed Comments Unknown Sex and Gender Information Value Date Recorded Sex Assigned at Not on file Legal Sex Female 4:20 PM EDT Gender Identity Not on file Sexual Orientation Not on file Plan of Treatment Health Maintenance Due Date Last Done Comments Varicella Vaccines (1 of 2 - 13+ 2-dose series) 2002 HPV Vaccines (1 - 3-dose SCDM series) 02/29/2016 Influenza Vaccines (#1) 2025 11/26/19 24, 11/07/2022, 08/10/2021, Additional history exists COVID-19 Vaccine ( - 2024- season) 2025 12/06/2021, 01/16/2021, 12/26/2020 DTaP,Tdap,and Td Vaccines (11 - Td or Tdap) 04/12/2034 04/12/2024, 12/06/2020, 01/13/2013, Additional history exists HIB Vaccines Completed 06/27/1990 IPV Vaccines Completed 03/08/1994, 04/12, 03/28/1990, Additional history exists Hepatitis B Vaccines Completed 01/27/2002, 01/23/2001, 12/26/2000 MMR Vaccines Completed 01/13/2013, 09/12, 06/27/1990 Hepatitis A Vaccines Aged Out No long er eligible based on patient's age to complete this topic Men B Vaccine Aged Out No longer elig ible based on patient's age to complete this topic Meningococcal Vaccine Aged Out No margaret daniel eligible based on patient's age to complete this topic Pneumococcal Vaccine Aged Out No long er eligible based on patient's age to complete this topic
--- OUTSIDE RECORDS SUMMARY | 2025-11-04 11:26 | XMS_ITS | Clinical Summary ---
Author Organization [email or web address] Address [address] [place] [address] Care Team Providers Care Manager Php Name Role Phone Unavailable Primary Care Provider Unavailabl e Allergies No known active allergies Medications No known medications Active Problems Problem Noted Date Diagnosed Date Dental caries 08/06/2023 Dental abscess 05/29/2023 Social History Tobacco Use Types Packs/Day Years Used Date Smoking Tobacco: Never Passive Smoke Exposure: Never Smokeless Tobacco: Never Tobacco Cessation:Counseling Given: Not Answered Alcohol Use Standard Drinks/Week Comments Never 0 (1 standard drink = 0.6 oz pur e alcohol) Comments Unknown Sex and Gender Information Value Date Recorded Sex Assigned at Female 05/29/2023 8:15 AM EDT Legal Sex Female 8:14 AM EDT Gender Identity Female 05/29/2023 8:15 AM EDT Sexual Orientation Don't know 05/29/2023 8: 15 AM EDT Last Filed Vital Signs Vital Sign Reading Time Taken Comments Blood Pressure 140/80 08/06/2023 8:04 AM EDT Pulse - - Temperature - - Respiratory Rate - - Oxygen Saturation - - Inhaled Oxygen Concentration - - Weight - - Height - - Body Mass Index - - Plan of Treatment Health Maintenance Due Date Last Done Comments Dental Oral Exam 1989 Dental Prophylaxis 1989 Dental X-Ray: Bitewings 1989 Depression Screening 1989 HIV Screening 1989 SDOH Screening 1989 Disability Screening 1989 Alcohol/Substance Use Screening 2001 Family Planning (PISQ) 02/29/2004 HPV Vaccines (1 - 3-dose series) 02/29/2004 Hepatitis C Screening 2007 Pap Smear 2010 Cervical Cancer Screening 2019 HPV/Cotest 2019 Tobacco Screening 08/06/2024 08/06/2023 COVID-19 Vaccine ( season) 2025 12/06/2021, 01/16/2021, 12/26/2020 Influenza Vaccine (#1) 2025 , 08/10/2021, 12/06/2020, Additional history exists Dental X-Ray: Full Mouth 05/30/2026 05/29/2023 DTaP/Tdap/Td Vaccines (10 - Td or Tdap) 12/06/2030 12/06/2020, 01/13/2013, 08/16/2010, Additional history exists Zoster Vaccines (1 of 2) 2039 RSV Patients and Patients Aged 60 years or older (1 - 1-dose 75+ series) 02/29/2064 HIB Vaccines Completed 06/27/1990 IPV Vaccines Completed 03/08/1994, 02/11, 04/24/1991, Additional history exists Hepatitis B Vaccines Completed 01/27/2002, 01/27/2002, 01/23/2001, Additional history exists Hepatitis A Vaccines Aged Out No long er eligible based on patient's age to complete this topic Meningococcal B Vaccine Aged Out No l onger eligible based on patient's age to complete this topic Meningococcal Vaccine Aged Out No margaret daniel eligible based on patient's age to complete this topic Pneumococcal Vaccine: Pediatrics (0 to 5 Years) and At-Risk Patients (6 to 49) Years Aged Out No longer eligible based on patient's age to complete this topic RSV under 20 months Aged Out No longe r eligible based on patient's age to complete this topic Rotavirus Vaccines Aged Out No longer eligible based on patient's age to complete this topic Procedures Procedure Name Priority Date/Time Associated Diagnosis Comments PANORAMIC RADIOGRAPHIC IMAGE Routine 05/29/2023 11:30 AM EDT from Last 3 Months or Most Recently Relevant to Health Maintenance Insurance [facility] [place] [address]
[2025-11-04 11:28] LABS: MANUAL DIFF FLAG NO
[2025-11-04 11:29] LABS: Hematocrit 31.3 % (37.0-47.0); Hemoglobin 9.6 g/dl (12.0-16.0); Imm Gran Abs Auto 0.02 X10*3/uL (0.00-0.03); Imm Gran Pct Auto 0.3 % (0.0-0.4); Lymphocytes Absolute Auto 2.0 X10*3/uL (1.2-4.9); Mean Corpuscular HGB Conc 30.7 g/dl (31.0-35.0); Mean Corpuscular Hemoglobin 22.0 pg (27.0-33.0); Mean Corpuscular Volume 71.6 fL (80.0-98.0); NRBC Abs Auto 0.000 X10*3/uL (0.0-0.012); NRBC Pct Auto 0.0 /100WBC (0.0-0.2); Platelet Count 436 X10*3/uL (160-400); Red Blood Count 4.37 X10*6/uL (4.20-5.50); White Blood Count 7.8 X10*3/uL (4.8-10.8)
[2025-11-04 11:46] LABS: Alanine Aminotransferase 31 U/L (0-31); Albumin Level 4.1 g/dL (3.5-5.0); Alkaline Phosphatase 81 U/L (39-117); Anion Gap 12 (12-20); Aspartate Amino Transferase 37 U/L (5-31); Blood Urea Nitrogen 14 mg/dL (9-16); Calcium 9.2 mg/dL (8.4-10.2); Carbon Dioxide 22 mmol/L (22-29); Chloride 108 mmol/L (96-108); Creatinine Clr Calc Pharmacy 121.4; Estimated Glomerular Filt Rate > 60; Potassium 4.0 mmol/L (3.3-5.1); Sodium 138 mmol/L (135-145); Total Protein 7.5 g/dL (6.5-8.0)
[2025-11-04 13:51] LABS: Appearance Urine Clear; Glucose Urine UA 500 mg/dL (Negative); PH 6.0 (5.0-9.0); Specific Gravity - Urine 1.025 (1.005-1.025); UMIC TRIGGER UACC YES
[2025-11-04 14:06] LABS: UACC Culture Trigger YES
[2025-11-04 15:11] VITALS: BP 144/76; PULSE 83; RESP 18; TEMP 36.3; O2SAT 100
== END 2025-11-04 15:11 | disposition home or self-care (01) ==
PROVIDERS: Nurse Practitioner; Registered Nurse Emergency; Emergency Provider Emergency Medicine
DX: M79.605 Pain in left leg (principal); Z86.718 Personal history of other venous thrombosis and embolism
CPT/HCPCS: 36415; 80053; 81001; 85025; 87086; 93971; 96372; 99283; 99284; J1885

== ENCOUNTER → 2025-11-04 11:08 | Outpatient (BNV) | payer MEDICAID, SELFPAY | PROVIDERS: Emergency Provider Emergency Medicine; Visit Provider Radiology Diagnostic Ultrasound | DX: M79.605 Pain in left leg (principal); Z86.718 Personal history of other venous thrombosis and embolism | CPT/HCPCS: 93971 ==